=== PATIENT | male | born 1960 | race Caucasian/White ===

== ENCOUNTER 2021-04-07 15:02 | Emergency (ER) | payer MEDICARE, SELFPAY ==
--- NOTE | ~2021-04-07 | XR_ITS ---
EXAMINATION: XR chest 2V 04/07/2021 15:59 INDICATION: Coughing up blood PROCEDURE: 2 view chest COMPARISON: 04/04/2014 FINDINGS: The lungs are clear. The cardiomediastinal silhouette is within normal limits. There are no pleural effusions. There is no pneumothorax suspected. The lungs are hyperinflated which is cons istent with, but not diagnostic of chronic obstructive pulmonary disease. There is calcified granulom a in the left lower lung base. IMPRESSION: 1: NO ACUTE CARDIOPULMONARY DISEASE. Reviewed, dictated and finalized at location A.
--- NOTE | ~2021-04-07 | CT_ITS ---
EXAMINATION: CT chest abdomen pelvis w con DATE: 04/07/2021 16:44 CDT INDICATION: Abdomen pain. Hemoptysis. TECHNIQUE: Computed tomography (CT) of the chest, abdomen, and pelvis was performed with 100 cc Omnip aque 350 intravenous contrast. The dose-length product was 1965.36 mGy-cm. Automated exposure control and iterative reconstruction technique were employed. COMPARISON: None FINDINGS: CHEST CT: There is emphysema. No endobronchial lesions. There is dependent atelectasis. Calcified granuloma lef t lower lobe. There are nonenlarged mediastinal lymph nodes, likely reactive. Heart size is normal. N o focal airspace consolidation. No endobronchial lesions. No suspicious pulmonary nodules or masses. ABDOMEN/PELVIS CT: The liver, spleen, pancreas, adrenal glands and kidneys are unremarkable. Gallbladder is present. The re are bilateral hip arthroplasties. Nonobstructive bowel gas pattern. No significant vascular abnorm ality. No lymphadenopathy. No acute osseous abnormality. There is moderate spondylosis at L4-5. There is lower cervical spondylosis. IMPRESSION: 1. No findings to account for patient's symptoms. 2: Emphysema. Reviewed, dictated and finalized at location A.
[2021-04-07 15:05] VITALS: BP 148/76; PULSE 84; RESP 18; TEMP 36.9; O2SAT 96
--- NOTE | 2021-04-07 15:14 | ECG_ITS ---
Measurements Intervals [place] Rate: 70 P: 31 OH: 190 QRS: 26 QRSD: 110 T: 41 QT: 414 QTc: 447 Interpretive Statements SINUS RHYTHM NORMAL ECG Electronically Signed On 04-09-2021 7:53:37 CDT by Nathan Aguayo D.O.
[2021-04-07] MEDS: SODIUM CHLORIDE 0.9% IV 1,000 ML 999 ML IV CONT (15:20)
[2021-04-07] MEDS: PANTOPRAZOLE SODIUM IV 40 MG VIAL 80 MG IV PUSH (15:25)
[2021-04-07 15:41] LABS: Basophils Absolute Auto 0.05 K/mm3 (0.00-0.10); Basophils Percent Auto 0.6 % (0.0-1.0); Eosinophils Absolute Auto 0.13 K/mm3 (0.02-0.50); Eosinophils Percent Auto 1.6 % (1.0-6.0); Hematocrit 54.2 % (40.0-54.0); Hemoglobin 18.1 g/dL (14.0-18.0); Immature Granulocyte Absolute 0.03 K/mm3 (0.00-0.00); Immature Granulocyte Percent A 0.4 % (0.0-0.0); Lymphocytes Absolute Auto 1.89 K/mm3 (1.10-4.50); Lymphocytes Percent Auto 22.9 % (18.0-42.0); Mean Corpuscular HGB Conc 33.4 g/dL (32.0-36.0); Mean Corpuscular Hemoglobin 31.1 pg (27.0-31.0); Mean Corpuscular Volume 93.1 fL (78.0-102.0); Mean Platelet Volume 10.2 fl (8.7-11.0); Monocytes Absolute Auto 0.65 K/mm3 (0.10-0.90); Monocytes Percent Auto 7.9 % (2.0-11.0); Neutrophils Absolute Auto 5.5 K/mm3 (1.7-7.2); Neutrophils Percent Auto 66.6 % (50.0-70.0); Platelet Count Result 195 K/mm3 (150-420); Red Blood Count 5.82 M/mm3 (4.70-6.10); Red Cell Distribution Width 14.2 % (11.6-14.4); White Blood Count 8.3 K/mm3 (4.8-10.8)
[2021-04-07 15:55] LABS: INR 1.1; Partial Thromboplastin Time 29.9 SEC (23.90-30.70); Prothrombin Time 11.2 Seconds (9.50-12.10)
[2021-04-07 15:57] LABS: D Dimer 0.43 mg/L (0.19-0.50)
[2021-04-07 16:00] VITALS: BP 145/71; PULSE 77; RESP 16; TEMP 36.7; O2SAT 96
[2021-04-07 16:00] LABS: Alanine Aminotransferase 50 U/L (16-63); Alkaline Phosphatase 83 U/L (46-116); Ammonia 11 umol/L (11-32); Anion Gap 7 mmol/L (8-16); Aspartate Amino Transferase 21 U/L (15-37); Bilirubin,Total 0.7 mg/dL (0.00-1.00); Blood Urea Nitrogen 9 mg/dL (7-18); Calcium 9.3 mg/dL (8.5-10.1); Carbon Dioxide 30 mmol/L (21-32); Chloride 106 mmol/L (98-108); Estimated Glomerular Filt Rate > 60; Glucose 94 mg/dL (70-99); Lipase 98 U/L (73-393); Magnesium 2.1 mg/dL (1.8-2.4); Osmolality Calculated 294 mOsm/kg (285-295); Potassium 4.5 mmol/L (3.5-5.1); Sodium 143 mmol/L (136-145)
[2021-04-07 16:07] LABS: Lactic Acid Reflex 1.5 mmol/L (0.4-2.0)
[2021-04-07 16:13] LABS: CRP < 0.2 mg/dL (0.0-0.9)
--- NOTE | 2021-04-07 16:50 | PC.NURSE ---
at 1510 ng tube insertion was attempted. pt refused completion of this task. stated he does not want the tube in his nose. several attempts to encourage compliance was unsuccessful
[2021-04-07 17:00] VITALS: BP 131/88; PULSE 62; RESP 16; TEMP 36.6; O2SAT 98
--- NOTE | 2021-04-07 17:04 | ED.URI ---
HPI - URI/Sore Throat General Chief Complaint: Upper Respiratory Infection Stated Complaint: ambulance Source: patient Mode of arrival: ambulatory Limitations: no limitations History of Present Illness HPI Narrative: this is a 52-year-old gentleman with no previous past medical history has a history of alcohol abuse but currently drinks 1 or 2 beers every every other day has a history of tobacco abuse. Patient was out fishing today and coughed and had an episode of bright red blood that he coughed up approximately chunk of clotted blood and then some profuse bleeding approximately a small [place] cup full. Currently there is no bleeding, no chest pain no shortness of breath the patient is not on blood thinners no fever or chills no heartburn no abdominal pain. MD elicited complaint: other ( GI bleed) Onset (ago): hour(s) Consistency: improved Severity: mild Description of mucous: bloody Exacerbating factors: nothing Relieving factors: nothing Related Data Allergies Allergy/AdvReac Type Severity Reaction Status Date / Time No Known Allergies Allergy Verified 04/07/21 15:41 Review of Systems Review of Systems: All systems reviewed & are unremarkable except as noted in HPI and below PMFSH Past Medical History Medical History Tobacco abuse Exam Const: General: no acute distress and alert Orientation/consciousness: patient oriented x3 HENMT: Head: normal to inspection and contusion Eyes: Conjunctivae: conjunctivae normal Pupils: Equal, round and reactive pupils present EOM: EOMs intact bilaterally Neck: Neck: normal visual inspection and no lymphadenopathy Chest: Chest palpation & inspection: normal inspection of the chest Resp: Effort & Inspection: normal respiratory effort Auscultation: clear to auscultation bilaterally GI: GI Palp: Yes Soft to palpation Percussion: Yes normal to percussion Urinary Catheter: Urinary Catheter: patent and draining Back/Spine/Pelvis: Back: no CVA tenderness Skin: General skin exam: normal color Extrem: General: normal to inspection Psych: Mental Status: mental status grossly normal Course Course Emergency Course: currently no hemoptysis no GI bleed currently the patient had a CT scan chest x-ray and labs reviewed and advised him to go home with follow-up with his primary care physician for an outpatient EGD, advised him to soft and clear liquid diet, will start on small dose of beta-anastasiia and Protonix. Vital Signs Vital signs: Vital Signs Temperature 36.9 C 04/07/21 15:05 Pulse Rate 84 04/07/21 15:05 Respiratory Rate 18 04/07/21 15:05 Blood Pressure 148/76 H 04/07/21 15:05 Pulse Oximetry 96 04/07/21 15:05 Temperature 36.7 C 04/07/21 16:00 Pulse Rate 77 04/07/21 16:00 Respiratory Rate 16 04/07/21 16:00 Blood Pressure 145/71 H 04/07/21 16:00 Pulse Oximetry 96 04/07/21 16:00 MDM - URI/Sore Throat Lab Data Result diagrams: 04/07/21 15:37 04/07/21 15:37 Labs: Lab Results 04/07/21 04/07/21 04/07/21 Range/Units 15:37 15:37 15:37 WBC 8.3 (4.8-10.8) K/mm3 RBC 5.82 (4.70-6.10) M/mm3 Hgb 18.1 H (14.0-18.0) g/dL Hct 54.2 H (40.0-54.0) % MCV 93.1 (78.0-102.0) fL MCH 31.1 H (27.0-31.0) pg MCHC 33.4 (32.0-36.0) g/dL RDW 14.2 (11.6-14.4) % Plt Count 195 (150-420) K/mm3 MPV 10.2 (8.7-11.0) fl Immature Gran % (Auto) 0.4 H (0.0-0.0) % Neut % (Auto) 66.6 (50.0-70.0) % Lymph % (Auto) 22.9 (18.0-42.0) % [place] % (Auto) 7.9 (2.0-11.0) % Eos % (Auto) 1.6 (1.0-6.0) % Baso % (Auto) 0.6 (0.0-1.0) % Lymph # (Auto) 1.89 (1.10-4.50) K/mm3 [place] # (Auto) 0.65 (0.10-0.90) K/mm3 Eos # (Auto) 0.13 (0.02-0.50) K/mm3 Baso # (Auto) 0.05 (0.00-0.10) K/mm3 Abs Immat Gran (auto) 0.03 H (0.00-0.00) K/mm3 Absolute Neuts (auto) 5.5 (1.7-7.2) K/mm3 Absolute Nucle
== END 2021-04-07 17:20 | disposition home or self-care (01) ==
PROVIDERS: Emergency Provider Emergency Medicine; PCP Emergency Medicine
DX: K92.2 Gastrointestinal hemorrhage, unspecified (principal)
CPT/HCPCS: 36415; 71046; 71260; 74177; 80053; 82140; 83605; 83690; 83735; 84484; 85025; 85380; 85610; 85730; 86140; 93005; 96361; 96374; 99283; 99284; C9113; J7030; Q9967

== ENCOUNTER 2021-04-18 01:44 | Day surgery (SDC) | payer MEDICARE, SELFPAY ==
[2021-04-12 13:25] VITALS: BMI 42.4
[2021-04-18 06:26] VITALS: BP 120/82; PULSE 55; RESP 18; TEMP 36.1; O2SAT 96
[2021-04-18 06:27] VITALS: BMI 41.1
[2021-04-18] MEDS: LACTATED RINGERS 1,000 ML 150 ML IV CONT (06:40)
--- NOTE | 2021-04-18 06:59 | WPDANESEPPF ---
Anes - Initial Pre Proc Eval Procedure: Operation Date: 04/18/21 07:30 Proposed Procedures p Esophagogastroduodenoscopy - Aj Rdz MD Date/Time: 04/18/21 06:59 Surgeon: Aj Rdz MD Pre Op Diagnosis: GI Bleed Patient Data Age: 60 Gender: M Height: 1.88 m Weight: 145.2 kg Last Vital Signs Temp 36.1 C L 04/18/21 06:26 Pulse 55 L 04/18/21 06:26 Resp 18 04/18/21 06:26 BP 120/82 04/18/21 06:26 Pulse Ox 96 04/18/21 06:26 Allergies Allergy/AdvReac Type Severity Reaction Status Date / Time No Known Allergies Allergy Verified 04/18/21 06:25 Home Medications Medication Instructions Recorded Confirmed Type metoprolol tartrate 25 mg PO DAILY #20 tablet 04/07/21 04/12/21 Rx pantoprazole [Protonix] 40 mg PO QAM 28 Days #28 tablet 04/07/21 04/12/21 Rx Patient hx anesthesia problems: none Family hx anesthesia problems: none PMFSH Past Medical History Medical History (Updated 04/18/21 @ 07:01 by Ki Hancock MD) FH: bilateral hip replacements (~2018) Morbid obesity with BMI of 40.0-44.9, adult Tobacco abuse Family History Family History Mother , 62 Heart problem Social History Social History Social History: Patient drinks 4 cups of coffee daily. Smoking packs per day: 1 Smoking cigarettes per day: 20.0 Years smoked: 30.00 Smoking pack-years: 30.00 Smoking status: Current every day smoker Tobacco type: cigarettes Alcohol intake: current Alcohol use details: Patient drinks ocassionally Substance use: current Substance use type: marijuana Other substance usage details: Occasionally Living arrangements: with family Gender identity (if verbalized by the patient): Male Spiritual care concerns: No Anes - Eval Final PreProcedure Day of Procedure 04/18/21 06:59 Patient weight: obese Heart: regular rate and rhythm Lungs: clear to auscultation and normal air movement Airway: Mallampati scale class II Neurological: alert and oriented Last oral intake: >/= 8 hours ASA classification: III Emergent: no Anesthetic plan: proceed Anesthesia type and monitoring: general GIVS Informed Consent: The patient's anesthetic plan and its attendant risks and benefits were discussed with the patient/family/POA. Questions were solicited and answers provided to the satisfaction of the patient/family/POA.
--- NOTE | 2021-04-18 07:28 | PM.HPGS ---
History of Present Illness History of Present Illness Consent: Risks, benefits, and alternatives have been discussed and questions answered. Patient agrees to proceed with procedure. Chief complaint: GI Bleed Narrative: Vadim Kent Sr. is a 60 year old male who few days ago coughed up blood, ER visit with stable Hb and CT chest/abd only showed emphysema, never had egd Review of Systems Constitutional: Constitutional: Denies headache(s) and Denies weakness Eyes: Eyes: Denies blurry vision ENT: Reports Normal hearing present, Denies headache(s) and Denies neck pain Cardiovascular: Cardiovascular: Denies chest pain and Denies dyspnea Respiratory: Respiratory: Denies dyspnea Gastrointestinal: Gastrointestinal: Reports no additional gastrointestinal complaints Genitourinary: Genitourinary: Denies dysuria Musculoskeletal: Musculoskeletal: Denies neck pain Integumentary/Breasts: Skin/Breast: Denies dry skin Neurologic: Reports Normal hearing present, Denies headache(s) and Denies weakness Psychiatric: Psychiatric: Denies anxiety Endocrine: Endocrine: Denies change in body appearance Hematologic/Lymphatic: Hematologic/Lymphatic: Denies easy bleeding Allergic/Immunologic: Allergic/Immunologic: Denies urticaria PMFSH Past Medical History Medical History (Updated 04/18/21 @ 07:01 by Ki Hancock MD) FH: bilateral hip replacements (~2019) Morbid obesity with BMI of 40.0-44.9, adult Tobacco abuse Family History Family History Mother , 62 Heart problem Social History Social History Social History: Patient drinks 4 cups of coffee daily. Smoking packs per day: 1 Smoking cigarettes per day: 20.0 Years smoked: 30.00 Smoking pack-years: 30.00 Smoking status: Current every day smoker Tobacco type: cigarettes Alcohol intake: current Alcohol use details: Patient drinks ocassionally Substance use: current Substance use type: marijuana Other substance usage details: Occasionally Living arrangements: with family Gender identity (if verbalized by the patient): Male Spiritual care concerns: No Meds Home Medications and Allergies Home Medications Medication Instructions Recorded Confirmed Type metoprolol tartrate 25 mg PO DAILY #20 tablet 04/07/21 04/12/21 Rx pantoprazole [Protonix] 40 mg PO QAM 28 Days #28 tablet 04/07/21 04/12/21 Rx Allergies Allergy/AdvReac Type Severity Reaction Status Date / Time No Known Allergies Allergy Verified 04/18/21 06:25 Vital Signs Vital Signs - 24 hr 04/18/21 06:26 Temperature 97 F L Pulse Rate 55 L Respiratory Rate 18 Blood Pressure 120/82 Pulse Oximetry 96 Exam Const: General: comfortable and no acute distress HENMT: General nose exam: Normal nares present Eyes: General: appearance normal, both eyes and all related structures Neck: Neck: no JVD Resp: Auscultation: clear to auscultation bilaterally Cardio: Rate: regular rate Rhythm: regular rhythm GI: Inspection: non-distended GI Palp: Yes Soft to palpation Skin: General skin exam: normal color Neuro: General: gait normal Speech: normal speech Extrem: General: normal to inspection Psych: Mental Status: mental status grossly normal Assessment and Plan Assessment and plan (1) Upper GI bleed: Code(s): K92.2 - Gastrointestinal hemorrhage, unspecified Status: Acute Assessment and Plan: will assess with egd, ? hemoptysis
[2021-04-18 07:43] VITALS: BP 111/74; PULSE 55; RESP 17; O2SAT 95
[2021-04-18 07:53] VITALS: BP 103/68; PULSE 54; RESP 17; O2SAT 95
[2021-04-18 08:03] VITALS: BP 115/78; PULSE 53; RESP 24; O2SAT 95
== END 2021-04-18 08:08 | disposition home or self-care (01) ==
PROVIDERS: PCP Emergency Medicine; Visit Provider Internal Medicine Gastroenterology
PROC: 0DJ08ZZ Inspection of Upper Intestinal Tract, Via Natural or Artificial Opening Endoscopic (ICD-10-PCS; CPT 43235; principal; 2021-04-18 07:30)
DX: K92.0 Hematemesis (principal); E66.01 Morbid (severe) obesity due to excess calories; Z68.41 Body mass index [BMI] 40.0-44.9, adult; F17.210 Nicotine dependence, cigarettes, uncomplicated; F12.90 Cannabis use, unspecified, uncomplicated
CPT/HCPCS: 43235; J2704; J7120

== ENCOUNTER 2021-05-31 20:00 | Outpatient (CLI) | payer MEDICARE, SELFPAY ==
--- NOTE | 2021-06-25 17:37 | WPDSLEEPSTUD ---
Sleep Study Date of Study: 05/31/21 <Falguni Burnett - Last Filed: 06/25/21 18:27> Ordering Provider: Avelino Ortega MD <Falguni Burnett - Last Filed: 06/25/21 18:27> Interpreting Physician: Falguni Burnett DO <Falguni Burnett, - Last Filed: 06/25/21 18:27> Sleep Study Type: Split Polysomnogram <Falguni Burnett - Last Filed: 06/25/21 18:27> Height: 1.85 m <Flaguni Burnett - Last Filed: 06/25/21 18:27> Weight: 147.418 kg <Falguni Burnett DO - Last Filed: 06/25/21 18:27> Body Mass Index: 42.8 <Falguni Burnett - Last Filed: 06/25/21 18:27> Neck Circumference (inches): 17 <Falguni Burnett - Last Filed: 06/25/21 18:27> [place]: 2 <Falguni Burnett - Last Filed: 06/25/21 18:27> Reason for Sleep Study Daytime hypersomnia <Falguni Burnett DO - Last Filed: 06/25/21 18:27> Sleep History The patient is a 61-year-old male with tobacco abuse and recent hemoptysis that had a split night study ordered by his microfilm processor for daytime hypersomnia. The patient denies having trouble sleeping when he has a cold. He denies waking up gasping for air throughout the night. He denies having breathing problems at night observed by others. He constantly sweats excessively at night. He denies heart palpitations or irregular heartbeats during the night. He denies falling asleep during the day and while driving. He denies sleep paralysis, cataplexy and hypnagogic / hypnopompic hallucinations. He denies having trouble at work due to sleepiness. he denies having nightmares. He constantly remembers his dreams. He constantly has thoughts racing through his mind. He denies feeling sad, depressed or anxious. He denies noticing parts of his body jerk were kicking throughout the night. He denies crawling and aching feelings in his legs as well as leg pain during the night. He denies grinding his teeth during sleep and awakening with jaw pain in the morning. He denies being bothered by pain during the day and being awakened by pain during the night. He denies waking up feeling stiff in the morning with sore and achy muscles. He goes to bed at 8:00 p.m. on both weekdays and weekends. He can fall asleep within 15 minutes. He wakes up 2 times per night to use the restroom. He typically falls back asleep within 15 minutes. He wakes up between 5 and 6:00 a.m. on both weekdays weekends. He typically gets 6 hours of sleep per night. He will stay in bed for a few minutes after awakening in the morning. He currently lives with his son. Does not consume any caffeinated beverages within 2 hours of bedtime. He does not engage in physical exercise before bedtime. He does not read or watch television before falling asleep. He does take naps in the afternoon or the evening and they are refreshing. He currently drinks a pot of coffee per day. He smokes 1 pack of cigarettes per day. He denies alcohol use. He does use marijuana. <Falguni Burnett DO - Last Filed: 06/25/21 18:27> [facility] Past Medical History Medical History: Medical History COPD (chronic obstructive pulmonary disease) CARPENTER (dyspnea on exertion) Dyslipidemia FH: bilateral hip replacements (~2019) Hemoptysis Hypersomnia Morbid obesity with BMI of 40.0-44.9, adult RAMAN (obstructive sleep apnea) PUD (peptic ulcer disease) Tobacco abuse <DO Ghanshyam Mooney Last Filed: 06/25/21 18:27> Family History Family History: Family History Mother , 62 Heart problem <DO Ghanshyam Mooney Last Filed: 06/25/21 18:27> Social History Social History: Social History Social History: Patient drinks 4 cups of coffee daily. Smoking packs per day: 1 Smokin
[2021-06-25 17:41] VITALS: BMI 42.8
== END 2021-06-01 07:48 | disposition home or self-care (01) ==
LOC: ANHCSM 06-01 07:34
PROVIDERS: PCP Emergency Medicine; Visit Provider Internal Medicine Pulmonary Disease
DX: G47.10 Hypersomnia, unspecified (principal); G47.33 Obstructive sleep apnea (adult) (pediatric)
CPT/HCPCS: 95811

== ENCOUNTER 2021-06-14 00:22 | Day surgery (SDC) | payer MEDICARE, SELFPAY ==
--- NOTE | 2021-05-21 13:10 | PC.NURSE ---
Pts chart reviewed with Dr. Peace anesthesia, determined pt needs to have Lexiscan study done as recommended prior in December [address] Ortega office called and I spoke with Sherrie, she will let know and then inform patient. Spoke with Dr. Mcgregor practice coordinator and she discussed with Dr. Mcgregor, they will order Lexiscan Myocardial Perfusion study to be done and will notify patient.
[2021-06-12 08:40] VITALS: BMI 42.7
--- NOTE | 2021-06-13 14:23 | P.PNAN_ITS ---
Anes - Initial Pre Proc Eval Procedure: Operation Date: 06/14/21 11:00 Proposed Procedures p Flexible Bronchoscopy - Avelino Ortega MD Date/Time: 06/13/21 14:23 Surgeon: Avelino Ortega MD Pre Op Diagnosis: hemoptysis Patient Data Age: 61 Gender: M Height: 1.85 m Weight: 147 kg Allergies Allergy/AdvReac Type Severity Reaction Status Date / Time No Known Allergies Allergy Verified 06/14/21 09:18 Home Medications Medication Instructions Recorded Confirmed Type losartan 50 mg-hydrochlorothiazide 1 tablet PO DAILY #90 tablet 05/30/21 06/12/21 Rx 12.5 mg tablet aspirin [Adult Aspirin] 81 mg PO DAILY 06/12/21 06/13/21 History Patient hx anesthesia problems: none Family hx anesthesia problems: none Results Review: All pre-operative results and documents have been reviewed as part of the pre-operative evaluation. [facility] Past Medical History Medical History (Updated 06/13/21 @ 14:27 by Ki Hancock MD) COPD (chronic obstructive pulmonary disease) CARPENTER (dyspnea on exertion) Dyslipidemia FH: bilateral hip replacements (~2018) Hemoptysis Hypersomnia Morbid obesity with BMI of 40.0-44.9, adult RAMAN (obstructive sleep apnea) PUD (peptic ulcer disease) Tobacco abuse Family History Family History Mother , 62 Heart problem Social History Social History Social History: Patient drinks 4 cups of coffee daily. Smoking packs per day: 1 Smoking cigarettes per day: 20.0 Years smoked: 30.00 Smoking pack-years: 30.00 Smoking status: Current every day smoker Tobacco type: cigarettes Alcohol intake: current Drinks per week: 12 Alcohol use details: Patient drinks ocassionally Substance use: current Substance use type: marijuana Other substance usage details: Occasionally Living arrangements: with family Gender identity (if verbalized by the patient): Male Spiritual care concerns: No Anes - Eval Final PreProcedure Day of Procedure 06/13/21 14:23 Patient weight: morbidly obese Heart: regular rate and rhythm Lungs: clear to auscultation and normal air movement Airway: Mallampati scale class II Neurological: alert and oriented Last oral intake: >/= 8 hours ASA classification: III Emergent: no Anesthetic plan: proceed Anesthesia type and monitoring: general LMA Results Review: All pre-operative results and documents have been reviewed as part of the pre-operative evaluation. Informed Consent: The patient's anesthetic plan and its attendant risks and benefits were discussed with the patient/family/POA. Questions were solicited and answers provided to the satisfaction of the patient/family/POA.
[2021-06-14] VITALS (8 sets, daily range): BP systolic 125–141; BP diastolic 76–83; PULSE 64–84; RESP 18–25; TEMP 36–36.4; O2SAT 94–100
[2021-06-14] MEDS: LACTATED RINGERS 1,000 ML 150 ML IV CONT (09:32)
--- NOTE | 2021-06-14 10:42 | PM.IMHP ---
H&P: HPI History of Present Illness Date/Time: 06/14/21 10:42 This is a 61-year-old man who is being admitted for outpatient bronchoscopy. He was seen in the [facility]patient [facility] approximately 3 weeks ago for an episode of hemoptysis he had couple of months ago. Please refer to my outpatient consultation. Chief Complaint: Hemoptysis Review of Systems Constitutional: Constitutional: Denies headache(s) and Denies weakness Eyes: Eyes: Denies blurry vision ENT: Reports Normal hearing present, Denies headache(s) and Denies neck pain Cardiovascular: Cardiovascular: Denies chest pain and Denies dyspnea Respiratory: Respiratory: Denies dyspnea Gastrointestinal: Gastrointestinal: Reports no additional gastrointestinal complaints Genitourinary: Genitourinary: Denies dysuria Musculoskeletal: Musculoskeletal: Denies neck pain Integumentary/Breasts: Skin/Breast: Denies dry skin Neurologic: Reports Normal hearing present, Denies headache(s) and Denies weakness Psychiatric: Psychiatric: Denies anxiety Endocrine: Endocrine: Denies change in body appearance Hematologic/Lymphatic: Hematologic/Lymphatic: Denies easy bleeding Allergic/Immunologic: Allergic/Immunologic: Denies urticaria PMFSH Past Medical History Medical History (Updated 06/14/21 @ 10:50 by Avelino Ortega MD) COPD (chronic obstructive pulmonary disease) CARPENTER (dyspnea on exertion) Dyslipidemia FH: bilateral hip replacements (~2019) Hemoptysis Hypersomnia Morbid obesity with BMI of 40.0-44.9, adult RAMAN (obstructive sleep apnea) PUD (peptic ulcer disease) Tobacco abuse Family History Family History Mother , 62 Heart problem Social History Social History Social History: Patient drinks 4 cups of coffee daily. Smoking packs per day: 1 Smoking cigarettes per day: 20.0 Years smoked: 30.00 Smoking pack-years: 30.00 Smoking status: Current every day smoker Tobacco type: cigarettes Alcohol intake: current Drinks per week: 12 Alcohol use details: Patient drinks ocassionally Substance use: current Substance use type: marijuana Other substance usage details: Occasionally Living arrangements: with family Gender identity (if verbalized by the patient): Male Spiritual care concerns: No Meds Home Medications and Allergies Home Medications Medication Instructions Recorded Confirmed Type losartan 50 mg-hydrochlorothiazide 1 tablet PO DAILY #90 tablet 05/30/21 06/12/21 Rx 12.5 mg tablet aspirin [Adult Aspirin] 81 mg PO DAILY 06/12/21 06/13/21 History Allergies Allergy/AdvReac Type Severity Reaction Status Date / Time No Known Allergies Allergy Verified 06/14/21 09:18 Vital Signs Vital Signs - 24 hr 06/14/21 09:19 Temperature 36.0 C L Pulse Rate 69 Respiratory Rate 18 Blood Pressure 138/77 Pulse Oximetry 95 Exam Narrative: GENERAL APPEARANCE: Well developed, well nourished, alert and cooperative, and appears to be in no acute distress SKIN: Inspection of the skin reveals no rashes, ulcerations or petechiae. HEENT: Sclerae anicteric and conjunctivae pink and moist. Extraocular movements were intact and pupils were equal, round, and reactive to light. The oral mucosa, hard and soft palate, tongue and posterior pharynx were normal. NECK: Supple. There was no thyroid enlargement, and no tenderness, or masses were felt. CHEST: Normal AP diameter and normal contour without any kyphoscoliosis. LUNGS: Auscultation of the lungs revealed normal breath sounds without any other adventitious sounds or rubs. CARDIAC: There was a regular rate and rhythm without any murmurs, gallops, rubs. ABDOMEN: Soft and nontender with normal bowel sounds. There was no organomegaly. LYMPH NODES: No lymphadenopathy was appreciated in the neck. EXTREMITIES: No cyanosis, clubbing or edema.
[2021-06-14] MEDS: LIDOCAINE HCL 2% PF INJ 5 ML VIAL 6 ML XX (11:30)
== END 2021-06-14 13:37 | disposition home or self-care (01) ==
PROVIDERS: PCP Emergency Medicine; Visit Provider Internal Medicine Pulmonary Disease
PROC: 0BJ08ZZ Inspection of Tracheobronchial Tree, Via Natural or Artificial Opening Endoscopic (ICD-10-PCS; CPT 31622; principal; 2021-06-14 11:00)
DX: R04.2 Hemoptysis (principal); J40 Bronchitis, not specified as acute or chronic; J38.3 Other diseases of vocal cords; J44.9 Chronic obstructive pulmonary disease, unspecified; E78.5 Hyperlipidemia, unspecified; G47.33 Obstructive sleep apnea (adult) (pediatric); K27.9 Peptic ulcer, site unspecified, unspecified as acute or chronic, without hemorrhage or perforation; F17.210 Nicotine dependence, cigarettes, uncomplicated; F12.90 Cannabis use, unspecified, uncomplicated; Z79.82 Long term (current) use of aspirin
CPT/HCPCS: 31622; J1100; J2001; J2405; J2704; J7040; J7120

== ENCOUNTER 2021-07-05 09:26 | Outpatient (CLI) | payer MEDICARE, SELFPAY ==
--- NOTE | 2021-07-05 09:37 | ECHO_ITS ---
Patient Info Name: Vadim Kent Age: 61 years : 1960 Gender: Male Ht: 74 in Wt: 320 lbs BSA: 2.81 m2 HR: 74 bpm BP: 135 / 85 mmHg Heart Rhythm: Sinus Rhythm Exam Date: 07/05/2021 10:23 AM Exam Location: [facility] Patient Status: Outpatient Admit Date: 07/05/2021 Staff Ordering Physician: Nathan Aguayo DO [employer] T[employer] Machine Operator: QUINTIN Attending Provider: Nathan Aguayo DO Referring Physician: Olivier STAFFORD; Exam Type: CA echo doppler color flow Study Info Indications R06.00 - Dyspnea, unspecified Complete two-dimensional, color flow and Doppler transthoracic echocardiogram is performed. Summary 1. Complete two-dimensional, color flow and Doppler transthoracic echocardiogram is performed. 2. Left ventricular chamber dimension is normal. 3. Left ventricular systolic function is normal, estimated at 60-65%. 4. The left ventricular diastolic function is grade II diastolic dysfunction. 5. E/e' 12 is mildly elevated. 6. Right ventricular chamber dimension is mildly enlarged. 7. Right atrial chamber dimension is mildly enlarged. Left Ventricle E/e' 12 is mildly elevated. Left ventricular chamber dimension is normal. Left ventricular systolic function is normal, estimated at 60-65%. The left ventricular diastolic function is grade II diastolic dysfunction. Right Ventricle Right ventricular systolic function is normal and with normal TAPSE 2.5 cm. Right ventricular chamber dimension is mildly enlarged. Left Atria Left atrial chamber dimension is normal. Right Atria Right atrial chamber dimension is mildly enlarged. Aortic Valve The aortic valve is trileaflet. There is no aortic valve stenosis. There is no aortic valve regurgitation. Pulmonic Valve There is no pulmonic regurgitation. Mitral Valve There is no mitral valve stenosis. There is no mitral valve regurgitation. Tricuspid Valve There is no tricuspid valve regurgitation. Pericardium/Pleural There is no pericardial effusion. Inferior Vena Cava Normal inferior vena cava with >50% collapse upon inspiration consistent with normal right atrial pressure, 5 mmHg. Aorta The aortic root size at the sinus of Valsalva is normal. Left Ventricular Outflow Tract Name Value Normal LVOT 2D LVOT Diameter 2.3 cm LVOT Doppler LVOT Peak Gradient 5 mmHg LVOT Mean Gradient 3 mmHg LVOT VTI 21 cm LVOT VTI/AV VTI Ratio 0.7 LVOT Stroke Volume 88 ml LVOT CO 5.3 l/min LVOT CI 1.9 l/min/m2 Pulmonic Valve Name Value Normal RVOT Doppler RVOT Peak Gradient 4 mmHg PV Doppler
== END 2021-07-05 09:27 | disposition home or self-care (01) ==
LOC: ANHCARD 09:27
PROVIDERS: PCP Emergency Medicine; Visit Provider Internal Medicine Cardiovascular Disease
DX: R06.00 Dyspnea, unspecified (principal); I51.7 Cardiomegaly
CPT/HCPCS: 93306